=== PATIENT | female | born 1965 | race Caucasian/White ===

== ENCOUNTER 2022-10-17 22:56 | Emergency (ER) | payer BC ==
[2022-10-17 23:21] VITALS: O2SAT 98
[2022-10-18 00:08] LABS: Absolute Neutrophil Ct (ANC) 6.93 x10^3/uL (1.4-6.9); BASOPHIL % 0.3 % (0.0-0.4); Basophil (Absolute #) 0.03 x10^3/uL (0-0.4); Eosinophil % 2.6 % (0.00-5.0); Eosinophil (Absolute #) 0.25 x10^3/uL (0-0.5); Hematocrit 35.9 % (35-47); Hemoglobin 11.5 g/dL (12.0-16.0); IMMATURE GRAN # 0.03 x10^3u/L (0.00-0.03); IMMATURE GRAN % 0.3 % (0.00-0.4); Lymphocytes % 20.4 % (24.0-44.0); Mean Corpuscular Hemoglobin 28.8 pg (26-32); Mean Platelet Volume 9.7 fL (7.5-11.0); Monocyte (Absolute #) 0.55 x10^3/uL (0.0-1.3); Monocytes % 5.6 % (0.0-12.0); Neutrophil % 70.8 % (36.0-66.0); Platelet Count 257 x10^3/uL (150-450); Red Blood Count 3.99 x10^6/uL (4.1-5.4); Red Cell Distribution Width 12.8 % (11.5-14.0); White Blood Count 9.8 x10^3/uL (4.0-10.5)
[2022-10-18 00:28] LABS: INR 0.93 (0.8-3.0); PROTIME 10.2 SECONDS (9.4-12.5); PTT 25.3 SECONDS (25.1-36.5)
[2022-10-18 00:29] LABS: ALBUMIN 3.8 g/dL (3.5-5.0); ANION GAP 14.8 MEQ/L (5-15); BILIRUBIN,TOTAL 0.3 mg/dL (0.2-1.3); Calcium 8.1 mg/dL (8.4-10.2); Creatinine 1 1.35 mg/dL (0.52-1.04); EST GLOMERULAR FILTRATION RATE 42.8 ML/MIN; Potassium 3.7 mmol/L (3.5-5.1); Total Protein 6.9 g/dL (6.3-8.2)
[2022-10-18 00:55] LABS: Amphetamine,Urine POSITIVE (NEGATIVE); Barbiturate,Urine POSITIVE (NEGATIVE); Benzodiazepine,Urine NEGATIVE (NEGATIVE); Cocaine,Urine NEGATIVE (NEGATIVE); Methadone,Urine NEGATIVE (NEGATIVE); Opiate,Urine NEGATIVE (NEGATIVE); PCP,Urine NEGATIVE (NEGATIVE); THC,Urine NEGATIVE (NEGATIVE)
[2022-10-18 00:57] LABS: ADD URINE CULTURE? YES (NO); Appearance Clear (Clear); Bacteria Rare /HPF (None Seen); Bilirubin Negative (Negative); Blood Negative (Negative); Epithelial Cells Moderate /HPF (None Seen); Glucose, Urine Negative (Negative); Ketones Trace (Negative); Leukocyte Esterase Small (Negative); Nitrite Negative (Negative); Protein,Urine Dip Trace (Negative); RBC 0-2 /HPF (0-5)
--- NOTE | 2022-10-18 01:30 | ERPHSYRPT ---
- History of Present Illness Source: patient, other (Sister) Exam Limitations: no limitations Patient Subjective Stated Complaint: pt states she was walking back into the house from outside and passed out as she was walking in the house and fell face first into the concrete and woke up after 2 minutes after the fall on the floor. pain in right side of forehead and nose. states she had PFO surgery 2 months ago, this is the first time she has passed out since the surgery, but states this was happening before the surgery. Triage Nursing Assessment: pt alert and oriented, able to answer questions appropriatly, large hematoma on right side of forhead, swollen bridge of the nose, laceration on upper lip. Physician History: 57 yo WF who is visiting her sister from [place] presents to the ER s/p fall due to syncope where she fell on concrete hitting her face. Pt complains of R facial pain/headache/cervical pain. pain is moderate to severe. She had a PFO repaired in July 2022 which caused syncope in the past. Pt states that she has had a TIA x2. She denies focal weakness/chest pain/dyspnea/nausea/vomting/abdominal pain/T&L-spine pain/UE pain/LE pain/pelvic pain/ hip pain. Occurred: just prior to arrival Reason for Fall: lightheaded (Syncope) Injuries/Pain Location: head, face, neck Loss of Consciousness: brief (seconds) Quality: aching Severity of Pain-Max: severe Severity of Pain-Current: severe Modifying Factors: Improves With: nothing, movement Associated Symptoms (Fall): denies symptoms Allergies/Adverse Reactions: Penicillins Allergy (Verified 10/17/22 23:21) Hx Tetanus, Diphtheria Vaccination/Date Given: No Hx Influenza Vaccination/Date Given: No Hx Pneumococcal Vaccination/Date Given: No Travel Risk - International Travel Have you traveled outside of the country in past 3 weeks: No - Coronavirus Screening Are you exhibiting any of the following symptoms?: No Close contact with a COVID-19 positive Pt in past 14-21 Days: No - Vaccine Status Have you recieved a Covid-19 vaccination: Yes 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: [place] - Vaccination Dates Date of 2cond Vaccination (if applicable): unknown - Review of Systems Constitutional: No Symptoms Eyes: No Symptoms Ears, Nose, & Throat: No Symptoms Respiratory: No Symptoms Cardiac: No Symptoms Abdominal/Gastrointestinal: No Symptoms Genitourinary Symptoms: No Symptoms Musculoskeletal: No Symptoms, Neck Pain Skin: No Symptoms Neurological: No Symptoms, Headache Psychological: No Symptoms Endocrine: No Symptoms Hematologic/Lymphatic: No Symptoms Immunological/Allergic: No Symptoms - Past Medical History Pertinent Past Medical History: Yes Other Medical History: cervical stenosis, lumbar stenosis, PFO, diabetes type 2, hypothyroid, anxiety, depression, hypertension - Past Surgical History Past Surgical History: Yes Cardiac: Other Other Surgical History: PFO - Social History Smoking Status: Never smoker Exposure to second hand smoke: No Drug Use: none - Nursing Vital Signs Nursing Vital Signs: Initial Vital Signs Temperature 98.6 F 10/17/22 23:03 Pulse Rate 98 H 10/17/22 23:03 Respiratory Rate 18 10/17/22 23:03 Blood Pressure 145/82 10/17/22 23:03 O2 Sat by Pulse Oximetry 98 10/17/22 23:03 Pain Scale Pain Intensity 4 Hypertensive - [place] Coma Score Best Eye Response (Maureen): (4) open spontaneously Best Verbal Response ([place]): (5) oriented Best Motor Response (Maureen): (6) obeys commands [place] Total: 15 - Physical Exam General Appearance: mild distress Head Injury: raccoon eyes (Pt w R divya-orbital edema and TTP/R glabellar edema and TTP/R zygoma edema and TTP) Eye Exam: PERRL/EOMI, eyes nml inspection ENT Exam: airway nml, No evidence of ENT injury, No clear fluid (ears), No clear fluid (nose), No midface instability Neck Exam: supple, trachea midline, other (C-spine TTP) Respiratory/Chest Exam: normal breath sounds, No chest tenderness, No respiratory distress Cardiovascular Exam: normal heart sounds, regular rate/rhythm, normal peripheral pulses, No murmur Gastrointestinal Exam: soft, normal bowel sounds, No tenderness Back Exam: normal inspection, No CVA tenderness, No vertebral tenderness Extremity Exam: normal inspection, normal range of motion, capillary refill <3 sec, pelvis stable Neurologic Exam: alert, oriented x 3, cooperative, length control tester II-XII nml as tested, normal mood/affect, nml cerebellar function, nml station & gait, sensation nml Skin Exam: normal color, warm, dry SpO2 Interpretation: normal SpO2: 98 O2 Delivery: Room Air - Course Nursing assessment & vital signs reviewed: Yes EKG Interpreted by Me: RATE (NSR/Normal QT-QTc/RBBB/Flat Twaves) - CT Exams Head CT Interpretation: Tele-radiologist Report (Minimal R nasal bone fx) Maxillofacial Bones CT Interpretation: Tele-radiologist Report (Minimal R nasal bone fx) Cervical Spine CT Interpretation: Tele-radiologist Report (No Fx) Ordered Tests: Active Orders 24 hr Category Date Time Status EKG-ER Only STAT Care 10/17/22 23:40 Active CERVICAL SPINE WO CONTRAST [CT] Stat Exams 10/17/22 23:39 Completed FACIAL BONES WO CONTRAST [CT] Stat Exams 10/17/22 23:39 Completed HEAD WITHOUT CONTRAST [CT] Stat Exams 10/17/22 23:39 Completed CULTURE,URINE Stat Lab 10/18/22 00:20 Received TROPONIN Q4H Lab 10/18/22 03:45 Ordered TROPONIN Q4H Lab 10/18/22 07:45 Ordered UA W/RFX UR CULTURE Stat Lab 10/18/22 00:20 Completed Urine Triage Profile Stat Lab 10/18/22 00:20 Completed Medication Summary Discontinued Medications Generic Name Dose Route Start Last Admin Trade Name Freq PRN Reason Stop Dose Admin Ketorolac Tromethamine 15 mg 10/18/22 01:38 10/18/22 01:40 Ketorolac Tromethamine 30 Mg/Ml Inj IV 10/18/22 01:39 15 mg STAT ONE Administration Ketorolac Tromethamine Confirm 10/18/22 01:39 Ketorolac Tromethamine 30 Mg/Ml Inj Administered 10/18/22 01:40 Dose 30 mg .ROUTE .STK-MED ONE Lab/Rad Data: Laboratory Result Diagrams 10/17/22 00:04 10/17/22 00:04 Laboratory Results 10/18/22 10/18/22 10/17/22 Range/Units 00:20 00:20 00:04 WBC (4.0-10.5) x10^3/uL RBC (4.1-5.4) x10^6/uL Hgb (12.0-16.0) g/dL Hct (35-47) % MCV (78-100) fL MCH (26-32) pg MCHC (32-36) g/dL RDW (11.5-14.0) % Plt Count (150-450) x10^3/uL MPV (7.5-11.0) fL Gran % (36.0-66.0) % Immature Gran % (Auto) (0.00-0.4) % Nucleat RBC Rel Count (0.00-0.1) % Eos # (Auto) (0-0.5) x10^3/uL Immature Gran # (Auto) (0.00-0.03) x10^3u/L Absolute Lymphs (auto) (1.0-4.6) x10^3/uL Absolute Monos (auto) (0.0-1.3) x10^3/uL Absolute Nucleated RBC (0.00-0.01) x10^3u/L Lymphocytes % (24.0-44.0) % Monocytes % (0.0-12.0) % Eosinophils % (0.00-5.0) % Basophils % (0.0-0.4) % Absolute Granulocytes (1.4-6.9) x10^3/uL Basophils # (0-0.4) x10^3/uL PT (9.4-12.5) SECONDS INR (0.8-3.0) APTT (25.1-36.5) SECONDS Sodium (137-145) mmol/L Potassium (3.5-5.1) mmol/L Chloride (98-107) mmol/L Carbon Dioxide (22-30) mmol/L Anion Gap (5-15) MEQ/L BUN (7-17) mg/dL Creatinine (0.52-1.04) mg/dL Estimated GFR ML/MIN Glucose (74-106) mg/dL Calcium (8.4-10.2) mg/dL Total Bilirubin (0.2-1.3) mg/dL AST (14-36) U/L ALT (0-35) U/L Alkaline Phosphatase (38-126) U/L Troponin I (0.000-0.034) ng/mL Serum Total Protein (6.3-8.2) g/dL Albumin (3.5-5.0) g/dL Urine Color Dark Yellow A (Yellow) Urine Appearance Clear (Clear) Urine pH 6.0 (4.6-8.0) Ur Specific [place] 1.020 (1.005-1.030) Urine Protein Trace A (Negative) Urine Glucose (UA) Negative (Negative) mg/dL Urine Ketones Trace A (Negative) Urine Blood Negative (Negative) Urine Nitrite Negative (Negative) Urine Bilirubin Negative (Negative) Urine Urobilinogen 1.0 A (0.2) mg/dL Ur Leukocyte Esterase Small A (Negative) U Hyaline Cast (Auto) 6-10 A (0-2) /LPF Urine Microscopic RBC 0-2 (0-5) /HPF Urine Microscopic WBC 11-20 A (0-5) /HPF Ur Epithelial Cells Moderate A (None Seen) /HPF Urine Bacteria Rare A (None Seen) /HPF Urine Culture Reflexed YES (NO) Urine Opiates Level NEGATIVE (NEGATIVE) Ur Methadone NEGATIVE (NEGATIVE) Urine Barbiturates POSITIVE (NEGATIVE) Ur Phencyclidine (PCP) NEGATIVE (NEGATIVE) Urine Amphetamine POSITIVE (NEGATIVE) U Benzodiazepine Level NEGATIVE (NEGATIVE) Urine Cocaine NEGATIVE (NEGATIVE) Urine Marijuana (THC) NEGATIVE (NEGATIVE) Ethyl Alcohol < 10 (0-10) mg/dL 10/17/22 10/17/22 10/17/22 Range/Units 00:04 00:04 00:04 WBC (4.0-10.5) x10^3/uL RBC (4.1-5.4) x10^6/uL Hgb (12.0-16.0) g/dL Hct (35-47) % MCV (78-100) fL MCH (26-32) pg MCHC (32-36) g/dL RDW (11.5-14.0) % Plt Count (150-450) x10^3/uL MPV (7.5-11.0) fL Gran % (36.0-66.0) % Immature Gran % (Auto) (0.00-0.4) % Nucleat RBC Rel Count (0.00-0.1) % Eos # (Auto) (0-0.5) x10^3/uL Immature Gran # (Auto) (0.00-0.03) x10^3u/L Absolute Lymphs (auto) (1.0-4.6) x10^3/uL Absolute Monos (auto) (0.0-1.3) x10^3/uL Absolute Nucleated RBC (0.00-0.01) x10^3u/L Lymphocytes % (24.0-44.0) % Monocytes % (0.0-12.0) % Eosinophils % (0.00-5.0) % Basophils % (0.0-0.4) % Absolute Granulocytes (1.4-6.9) x10^3/uL Basophils # (0-0.4) x10^3/uL PT 10.2 (9.4-12.5) SECONDS INR 0.93 (0.8-3.0) APTT 25.3 (25.1-36.5) SECONDS Sodium 139 (137-145) mmol/L Potassium 3.7 (3.5-5.1) mmol/L Chloride 104 (98-107) mmol/L Carbon Dioxide 25 (22-30) mmol/L Anion Gap 14.8 (5-15) MEQ/L BUN 25 H (7-17) mg/dL Creatinine 1.35 H (0.52-1.04) mg/dL Estimated GFR 42.8 ML/MIN Glucose 187 H (74-106) mg/dL Calcium 8.1 L (8.4-10.2) mg/dL Total Bilirubin 0.30 (0.2-1.3) mg/dL AST 36 (14-36) U/L ALT 25 (0-35) U/L Alkaline Phosphatase 126 (38-126) U/L Troponin I < 0.012 (0.000-0.034) ng/mL Serum Total Protein 6.9 (6.3-8.2) g/dL Albumin 3.8 (3.5-5.0) g/dL Urine Color (Yellow) Urine Appearance (Clear) Urine pH (4.6-8.0) Ur Specific [place] (1.005-1.030) Urine Protein (Negative) Urine Glucose (UA) (Negative) mg/dL Urine Ketones (Negative) Urine Blood (Negative) Urine Nitrite (Negative) Urine Bilirubin (Negative) Urine Urobilinogen (0.2) mg/dL Ur Leukocyte Esterase (Negative) U Hyaline Cast (Auto) (0-2) /LPF Urine Microscopic RBC (0-5) /HPF Urine Microscopic WBC (0-5) /HPF Ur Epithelial Cells (None Seen) /HPF Urine Bacteria (None Seen) /HPF Urine Culture Reflexed (NO) Urine Opiates Level (NEGATIVE) Ur Methadone (NEGATIVE) Urine Barbiturates (NEGATIVE) Ur Phencyclidine (PCP) (NEGATIVE) Urine Amphetamine (NEGATIVE) U Benzodiazepine Level (NEGATIVE) Urine Cocaine (NEGATIVE) Urine Marijuana (THC) (NEGATIVE) Ethyl Alcohol (0-10) mg/dL 10/17/22 Range/Units 00:04 WBC 9.8 (4.0-10.5) x10^3/uL RBC 3.99 L (4.1-5.4) x10^6/uL Hgb 11.5 L (12.0-16.0) g/dL Hct 35.9 (35-47) % MCV 90.0 (78-100) fL MCH 28.8 (26-32) pg MCHC 32.0 (32-36) g/dL RDW 12.8 (11.5-14.0) % Plt Count 257 (150-450) x10^3/uL MPV 9.7 (7.5-11.0) fL Gran % 70.8 H (36.0-66.0) % Immature Gran % (Auto) 0.3 (0.00-0.4) % Nucleat RBC Rel Count 0.0 (0.00-0.1) % Eos # (Auto) 0.25 (0-0.5) x10^3/uL Immature Gran # (Auto) 0.03 (0.00-0.03) x10^3u/L Absolute Lymphs (auto) 2.00 (1.0-4.6) x10^3/uL Absolute Monos (auto) 0.55 (0.0-1.3) x10^3/uL Absolute Nucleated RBC 0.00 (0.00-0.01) x10^3u/L Lymphocytes % 20.4 L (24.0-44.0) % Monocytes % 5.6 (0.0-12.0) % Eosinophils % 2.6 (0.00-5.0) % Basophils % 0.3 (0.0-0.4) % Absolute Granulocytes 6.93 H (1.4-6.9) x10^3/uL Basophils # 0.03 (0-0.4) x10^3/uL PT (9.4-12.5) SECONDS INR (0.8-3.0) APTT (25.1-36.5) SECONDS Sodium (137-145) mmol/L Potassium (3.5-5.1) mmol/L Chloride (98-107) mmol/L Carbon Dioxide (22-30) mmol/L Anion Gap (5-15) MEQ/L BUN (7-17) mg/dL Creatinine (0.52-1.04) mg/dL Estimated GFR ML/MIN Glucose (74-106) mg/dL Calcium (8.4-10.2) mg/dL Total Bilirubin (0.2-1.3) mg/dL AST (14-36) U/L ALT (0-35) U/L Alkaline Phosphatase (38-126) U/L Troponin I (0.000-0.034) ng/mL Serum Total Protein (6.3-8.2) g/dL Albumin (3.5-5.0) g/dL Urine Color (Yellow) Urine Appearance (Clear) Urine pH (4.6-8.0) Ur Specific [place] (1.005-1.030) Urine Protein (Negative) Urine Glucose (UA) (Negative) mg/dL Urine Ketones (Negative) Urine Blood (Negative) Urine Nitrite (Negative) Urine Bilirubin (Negative) Urine Urobilinogen (0.2) mg/dL Ur Leukocyte Esterase (Negative) U Hyaline Cast (Auto) (0-2) /LPF Urine Microscopic RBC (0-5) /HPF Urine Microscopic WBC (0-5) /HPF Ur Epithelial Cells (None Seen) /HPF Urine Bacteria (None Seen) /HPF Urine Culture Reflexed (NO) Urine Opiates Level (NEGATIVE) Ur Methadone (NEGATIVE) Urine Barbiturates (NEGATIVE) Ur Phencyclidine (PCP) (NEGATIVE) Urine Amphetamine (NEGATIVE) U Benzodiazepine Level (NEGATIVE) Urine Cocaine (NEGATIVE) Urine Marijuana (THC) (NEGATIVE) Ethyl Alcohol (0-10) mg/dL - Progress Progress: improved Progress Note: 10/18/22 02:11 Nursing note and vital signs reviewed No food or housing insecurities noted Additional history per sister Lab results reviewed and shared w pt CT results reviewed and shared w pt Pain improved w 15mg IV Toradol No focal weakness or syncope in ER GCS 15 throughout stay No ectopy in ER Recommended observational admit due to syncope, but pt refuses at this time because she has a family reunion to attend. 04/15/23 02:34 10/18/22 02:38 Counseled pt/family regarding: lab results, diagnosis, need for follow-up, rad results Medical Desision Making - Independent Historian Additional History obtained from: Relative/friend - Diagnostic Testing Diagnostic test were ordered, analyzed, and reviewed by me: Yes Radiological Interpretation: Teleradiologist Report - Risk of complications The pt has a mod risk of morbidity or mortality based on: Need for prescription drug management - Departure Departure Disposition: Home Clinical Impression: Syncope, Nasal bone fracture, Contusion of face, Minor head injury, UTI (urinary tract infection) Condition: Stable Critical Care Time: No Referrals: Provider,Unknown [Primary Care Provider] - Follow up/PCP as directed Instructions: Urinary Tract Infection, Adult (DC), Syncope (Fainting) (DC), Minor Head Injury (DC), Nose Fracture (DC) Additional Instructions: Ice for 12-24 hours Continue with pain meds No driving until cleared by your family MD [place] twice a day for 5 days Return to ER for worsening of condition Prescriptions: Nitrofurantoin Monohyd/M-Cryst [Macrobid 100 mg Capsule] 100 mg PO BID 5 Days #10 cap
[2022-10-18] MEDS ORDERED: TORAdol 30 mg Injection IV ONE (01:38)
[2022-10-18] MEDS ORDERED: TORAdol 30 mg Injection ONE (01:39)
--- NOTE | 2022-10-18 01:52 | XRAY ---
CLINICAL HISTORY:Fall; COMPARISON:None; TECHNIQUES:Axial non-contrast CT scan of the brain was performed from the skull base to the high parietal region. Coronal/sagittal and bone window have also been provided. CTDI: 53.92 mGy. DLP: 977.56 mGy*cm; FINDINGS: Right orbital pre-septal thickening is noted with a hyperdense focus anterior to medial right orbital septum measuring 1.9 x 1.1 cm in keeping with hematoma. No post-septal or intraconal abnormality is seen in right orbit. Left orbit is clear. There are few tiny ill-defined [id number] areas noted in the subcortical white matter bilaterally, suggestive of microvascular ischemic changes. [place]-white matter differentiation is maintained. No midline shifts or deformity. No intra axial, sub dural or epidural hematoma. Normal size and configuration of the cerebral ventricles. Normal CT appearance of the posterior fossa structures namely the cerebellar hemispheres, brainstem and cerebellar peduncles. Right nasal bone fracture. Mild mucosal thickening is noted in left maxillary sinus. Rest of the scanned paranasal sinuses are clear. IMPRESSION: Right orbital pre-septal thickening with a hyperdense hematoma anterior to medial right orbital septum measuring 1.9 x 1.1 cm. A small right nasal bone fracture depressed by 1 mm. Mild microvascular ischemic changes. Electronically Signed by: Bear Arreaga MD. ( 10/18/2022 00:45:31 LEGAL INSTRUMENTS EXAMINER)
--- NOTE | 2022-10-18 01:54 | XRAY ---
CLINICAL HISTORY:Fall; COMPARISON:None; TECHNIQUES:Non-Contrast CT scan of the maxillofacial bones was performed, with sagittal and coronal multiplanar reconstruction; FINDINGS: Minimal displaced fracture of the right side of the nasal bone. Right frontal subcutaneous hematoma. Mucosal thickening of both maxillary sinuses. Normal both orbits. IMPRESSION: Fracture of the right side of the nasal bone with right frontal subcutaneous hematoma and bilateral maxillary sinusitis. Electronically Signed by: Bear Arreaga MD. (10/18/2022 00:47:38 ERCO MACHINE OPERATOR)
--- NOTE | 2022-10-18 01:54 | XRAY ---
CLINICAL HISTORY:Fall COMPARISON:None; TECHNIQUES:Thin axial CT of the cervical spine was performed with sagittal and coronal reconstructions without contrast. CTDI: 24.99 mGy, DLP: 475.91mGy; FINDINGS: Post cervical spine fixation status at C5 to T1 levels. Streak artifacts due to metallic hardware are causing image deterioration. Minimal retrolisthesis of C4 over C5 vertebra is noted. Multilevel anterior and posterior osteophytes, uncovertebral joint hypertrophy, and facet arthropathy were noted. Multilevel disc osteophyte complexes and facet arthropathy resulting in neural foramina narrowing. The vertebral bodies are normal in height. No lytic or sclerotic bone lesion. The craniovertebral measures are unremarkable. Intervertebral disc spaces: Severe reduction in height of intervertebral disc spaces between C5-C6 to C7-T1 levels noted. The paravertebral spaces appear normal. No abnormality was detected in the prevertebral region. IMPRESSION: 1. No definite acute fracture was detected in the cervical spine. 2. Post cervical spine fixation status at C5 to T1 levels. Streak artifacts due to metallic hardware are causing image deterioration. 3. Minimal retrolisthesis of C4 over C5 vertebra. 4. Advanced cervical spondylosis with multilevel disc osteophyte complexes and facet arthropathy. Electronically Signed by: Bear Arreaga MD. (10/18/2022 00:28:35 QUICK SERVICE TECHNICIAN)
[2022-10-18 02:14] VITALS: BP 113/58; PULSE 72
== END 2022-10-18 02:44 | disposition home or self-care (01) ==
LOC: ED 22:56
DX: S02.2XXA Fracture of nasal bones, initial encounter for closed fracture (principal); S09.90XA Unspecified injury of head, initial encounter; S00.83XA Contusion of other part of head, initial encounter; W18.39XA Other fall on same level, initial encounter; Y93.01 Activity, walking, marching and hiking; Y92.007 Garden or yard of unspecified non-institutional (private) residence as the place of occurrence of the external cause; R55 Syncope and collapse; R51.9 Headache, unspecified; M54.2 Cervicalgia; E11.9 Type 2 diabetes mellitus without complications; I10 Essential (primary) hypertension
CPT/HCPCS: 36415; 70450; 70486; 72125; 80053; 80307; 81001; 82077; 84484; 85025; 85610; 85730; 87086; 93005; 96374; 99284; J1885